=== PATIENT | male | born 1990 | race African-American/Black ===

== ENCOUNTER 2022-05-21 20:00 | Emergency (ER) | payer OTHER ==
[~2022-05-21] VITALS: Ht 177.8 cm; Wt 65.0 kg
[~2022-05-21 20:00] MED LIST: MDI
[2022-05-21] MEDS ORDERED: DEXAMETHASONE 4 MG TABLET PO ONE (21:00)
[2022-05-21] MEDS ORDERED: ALBUTEROL SULFATE 5 MG/ML 20 ML NEB SOLN [BULK] NEB ONE (21:00)
[2022-05-21] MEDS ORDERED: IPRATROPIUM BROMIDE 0.5 MG/2.5 ML NEB SOLUTION NEB ONE (21:00)
[2022-05-21] MEDS ORDERED: ALBUTEROL SULFATE 2.5 MG/0.5 ML NEB SOLUTION NEB ONE ×2 (21:10→21:15)
[2022-05-21 21:22] LABS: COVID AG,FIA SOURCE NASAL SWAB
[2022-05-21 21:50] LABS: INFLUENZA TYPE A NEGATIVE FOR TYPE A (NEGATIVE); INFLUENZA TYPE B NEGATIVE FOR TYPE B (NEGATIVE)
[2022-05-21] MEDS ORDERED: ALBU8HFA IH (23:43)
[2022-05-22 00:05] VITALS: BP 125/65
== END 2022-05-22 00:06 | disposition home or self-care (01) ==
LOC: EMS 20:02
DX: J45.901 Unspecified asthma with (acute) exacerbation (principal); F12.90 Cannabis use, unspecified, uncomplicated; Z20.822 Contact with and (suspected) exposure to COVID-19
CPT/HCPCS: 99285; 71045; 87426; 87804; 94644; J8540; J7613